=== PATIENT | male | born 1970 | race Caucasian/White ===

== ENCOUNTER 2018-12-25 14:25 | Emergency (ER) | payer OTHER ==
[2018-12-25] MEDS ORDERED: Lidocaine 1% 20 ML MDV INFILT ONE (14:26)
[2018-12-25] MEDS ORDERED: Doxycycline 100 MG Tab PO ONE (15:04)
--- NOTE | 2018-12-25 15:10 | EDM.PDOC ---
ED HPI GENERAL MEDICAL PROBLEM - General Chief Complaint: Skin Complaint Stated Complaint: INFLAMATION ON BACK OF L LEG Time Seen by Provider: 12/25/18 14:30 Source of Information: Reports: Patient History Limitations: Reports: No Limitations - History of Present Illness INITIAL COMMENTS - FREE TEXT/NARRATIVE: 48-year-old male who noted itching on his left calf on Wednesday afternoon. He noticed a small bump in the area and since that time the bump has gotten bigger and there has been increased redness around the bump. Now he has a mild soreness in the area that he rates as a 2/10. It is worse with palpation. No groin tenderness or adenopathy. He has had no fever. He's had no chills. He's had no nausea or vomiting. He does not remember any injury or trauma to the area. There has been no drainage from the area. There are no other associated signs or symptoms. There are no other modifying factors. 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 12/25/18 [Rx] Past Medical History Respiratory History: Reports: COPD - Past Surgical History GI Surgical History: Reports: Hernia, Inguinal (Left) Social & Family History - Tobacco Use Smoking Status *Q: Current Every Day Smoker - Alcohol Use Alcohol Use History: Yes Alcohol Use Frequency: Rarely - Living Situation & Occupation Occupation: Employed (Works at [employer]) Social History Comment: He is from [place] and is up here working. ED ROS GENERAL - Review of Systems Review Of Systems: See Below Constitutional: Denies: Fever, Chills HEENT: Reports: No Symptoms Respiratory: Reports: No Symptoms Cardiovascular: Reports: No Symptoms GI/Abdominal: Reports: No Symptoms : Reports: No Symptoms Musculoskeletal: Reports: Other (Left calf pain around lump) Skin: Reports: Erythema (Around left calf lump) Neurological: Reports: No Symptoms Hematologic/Lymphatic: Reports: No Symptoms Immunologic: Reports: No Symptoms ED EXAM, SKIN/RASH Exam: See Below Exam Limited By: No Limitations General Appearance: Alert, WD/WN, No Apparent Distress Eye Exam: Bilateral Eye: EOMI, Normal Inspection Ears: Normal External Exam Nose: Normal Inspection, Normal Mucosa Throat/Mouth: Normal Inspection, Normal Oropharynx, Normal Voice, No Airway Compromise Head: Atraumatic, Normocephalic Neck: Normal Inspection, Supple, Non-Tender, Full Range of Motion Respiratory/Chest: No Respiratory Distress, Lungs Clear, Normal Breath Sounds, No Accessory Muscle Use, Chest Non-Tender Cardiovascular: Normal Peripheral Pulses, Regular Rate, Rhythm, No JVD GI/Abdominal: Normal Bowel Sounds, Soft, Non-Tender, No Organomegaly, No Mass Back Exam: Normal Inspection Extremities: Normal Range of Motion, Normal Capillary Refill, Other (Small area on the proximal left posterior calf, approximately nickel sized in diameter) Skin: Warm, Dry, Erythema (Around the left proximal calf fluctuant area) Location, Skin: Lower Extremity, Left (Proximal calf) Characteristics: Erythematous Associated features: Tenderness, Swelling, Inflammation. No: Lymphangitis Lymphatic: No Adenopathy ED SKIN PROCEDURES - I&D Site: Left proximal calf Skin Prep: Providone-Iodine (Betadine) Local Anesthesia: Lidocaine: 1% Plain Local Anesthetic Volume: 4cc (Good anesthesia, no complications) Area Incised With: 11 Blade Drainage: Purulent, Small Amount Probed to Break Up Loculations: Yes Packed With: Other (1/4 inch Nu Gauze) Sterile Dressinx4(s) (With Hari wrap over this) Complications: No Progress/Comments: Patient was given doxycycline 200 mg by mouth now and will be placed on doxycycline 100 mg by mouth twice a day 7 days. Course - Vital Signs Last Recorded V/S: Last Vital Signs Temp 37.0 C 12/25/18 14:25 Pulse 93 12/25/18 14:25 Resp 17 12/25/18 14:25 BP 130/78 12/25/18 14:25 Pulse Ox 99 12/25/18 14:25 - Orders/Labs/Meds Orders: Active Orders 24 hr Category Date Time Status Doxycycline [Vibra-Tabs] Med 12/25/18 15:04 Once 200 mg PO ONETIME ONE Medication Orders Doxycycline Hyclate (Vibra-Tabs) 200 mg PO ONETIME ONE Stop: 12/25/18 15:05 Meds: Medications Generic Name Dose Route Start Last Admin Trade Name Jes PRN Reason Stop Dose Admin Doxycycline Hyclate 200 mg 12/25/18 15:04 Vibra-Tabs PO 12/25/18 15:05 ONETIME ONE Departure - Departure Time of Disposition: 15:15 Disposition: Home, Self-Care 01 Condition: Good Clinical Impression: Subcutaneous abscess Qualifiers: Site of cutaneous abscess: extremity Site of cutaneous abscess of extremity: lower extremity Laterality: left Qualified Code(s): L02.416 - Cutaneous abscess of left lower limb Cellulitis Qualifiers: Site of cellulitis: extremity Site of cellulitis of extremity: lower extremity Laterality: left Qualified Code(s): L03.116 - Cellulitis of left lower limb - Discharge Information Prescriptions: Doxycycline Hyclate 100 mg PO DAILY 7 Days #14 tablet.dr Instructions: Cellulitis, Adult, [id number] Additional Instructions: Leave the packing in place until the morning of 12/27/2018. At that time, remove the packing and wash the area while in the shower with soap and lots of water. Clean the wound with soap and lots of water to 2 times a day thereafter. Apply a supportive dressing until the wound has closed over. You may take ibuprofen and Tylenol as needed for pain. Medication as prescribed (doxycycline 100 mg). Take probiotics or eat yogurt daily while you are on the antibiotics. Avoid sun exposure while you are on this antibiotic. For sun exposed areas, you should apply SPF 50 sunscreen or better. Back to the emergency department for increasing redness, increasing pain, increasing swelling, fever, vomiting or any other concerning sign or symptom. - My Orders Last 24 Hours: My Active Orders 12/25/18 15:04 Doxycycline [Vibra-Tabs] 200 mg PO ONETIME ONE - Assessment/Plan Last 24 Hours: My Active Orders 12/25/18 15:04 Doxycycline [Vibra-Tabs] 200 mg PO ONETIME ONE
[2018-12-25 15:38] VITALS: BP 135/93; PULSE 87
== END 2018-12-25 15:26 | disposition home or self-care (01) ==
LOC: FB.ED 14:25
DX: L02.416 Cutaneous abscess of left lower limb (principal); L03.116 Cellulitis of left lower limb; F17.200 Nicotine dependence, unspecified, uncomplicated; J44.9 Chronic obstructive pulmonary disease, unspecified
CPT/HCPCS: 10060; 10061; 99283; A9270; J2001